=== PATIENT | female | born 1995 | race Caucasian/White ===

== ENCOUNTER 2020-10-17 19:59 | Emergency (ER) | payer OTHER ==
[~2020-10-17] VITALS: Ht 152.4 cm; Wt 57.6 kg
--- NOTE | 2020-10-17 20:00 | NUR ---
PT C/O GEN BODY RASH STARTED AROUND 7PM TODAY. DENIES ANY FOOD ALLERGY, OR ANY NEW SKIN PRODUCTSDENIES ANY FOOD ALLERGY, OR ANY NEW SKIN PRODUCTS. A/OX4. TOLERATING R/A WELL
[2020-10-17] MEDS ORDERED: methylPREDNISolone SOD SUCC 125 MG/2ML VIAL ONE (21:20)
[2020-10-17] MEDS ORDERED: diphenhydrAMINE HCL 50 MG/ML VIAL ONE (21:20)
[2020-10-17] MEDS ORDERED: FAMOTIDINE/PF INJ 20 MG/2 ML VIAL IV ONE ×2 (21:21→21:30)
[2020-10-17] MEDS ORDERED: methylPREDNISolone SOD SUCC 125 MG/2ML VIAL IV ONE (21:30)
[2020-10-17] MEDS ORDERED: diphenhydrAMINE HCL 50 MG/ML VIAL IV ONE (21:30)
[2020-10-17] MEDS ORDERED: IV NS 0.9% 1,000 ML BAG IV ONE (21:30)
[2020-10-17] MEDS ORDERED: DIPH25CA83 PO (23:11)
[2020-10-17] MEDS ORDERED: PRED20TA PO (23:11)
[2020-10-17] MEDS ORDERED: FAMO-131 PO (23:11)
--- NOTE | 2020-10-18 00:01 | NUR ---
Patient discharged to home in stable condition. RX Written and verbal after care instructions given. Patient verbalizes understanding of instruction. DC IV; NO ACTIVE BLEEDING. PT AMBULATORY
[2020-10-18 00:47] VITALS: BP 121/75
== END 2020-10-18 | disposition home or self-care (01) ==
LOC: ER 19:59
DX: L50.0 Allergic urticaria (principal); Z79.899 Other long term (current) drug therapy
CPT/HCPCS: 96361; 96374; 96375; 99284; J1200; J2930; J3490; J7030

== ENCOUNTER 2020-10-18 22:12 | Emergency (ER) | payer MEDICAID, OTHER ==
[~2020-10-18] VITALS: Ht 160 cm; Wt 61.2 kg
[~2020-10-18 22:12] MED LIST: DIPH25CA83 PO; FAMO-131 PO; PRED20TA PO
[2020-10-18] MEDS ORDERED: methylPREDNISolone SOD SUCC 40 MG/ML VIAL IV ONE (22:30)
[2020-10-18] MEDS ORDERED: FAMOTIDINE/PF INJ 20 MG/2 ML VIAL IV ONE ×2 (22:30→22:37)
[2020-10-18] MEDS ORDERED: IV NS 0.9% 1,000 ML BAG IV ONE (22:30)
[2020-10-18] MEDS ORDERED: diphenhydrAMINE HCL 50 MG/ML VIAL IV ONE (22:30)
--- NOTE | 2020-10-18 22:35 | NUR ---
PT BIBSELF, SAME ISSUE YESTERDAY, HIVES AND RASH ON TORSO AND FACE. NO NEW DETERGENT, SHAMPOO, BODYWASH. PT ALERT AND ORIENTED X4.
[2020-10-18] MEDS ORDERED: diphenhydrAMINE HCL 50 MG/ML VIAL ONE (22:36)
[2020-10-18] MEDS ORDERED: methylPREDNISolone SOD SUCC 125 MG/2ML VIAL ONE (22:36)
--- NOTE | 2020-10-18 23:30 | NUR ---
Patient discharged to home in stable condition. Written and verbal after care instructions given. Patient verbalizes understanding of instruction.
[2020-10-18 23:31] VITALS: BP 109/88
== END 2020-10-18 23:34 | disposition home or self-care (01) ==
LOC: ER 22:12
DX: L50.9 Urticaria, unspecified (principal); Z79.899 Other long term (current) drug therapy
CPT/HCPCS: 96361; 96374; 96375; 99284; J1200; J2930; J3490; J7030